=== PATIENT | male | born 1995 | race African-American/Black ===

== ENCOUNTER 2024-01-24 10:56 | Emergency (ER) | payer OTHER ==
[2024-01-24 11:02] VITALS: BP 136/73; PULSE 73; RESP 18; TEMP 97.1; BMI 31.5
[2024-01-24] MEDS ORDERED: ACETAMINOPHEN 500 MG TABLET (FP) ONE (11:39)
[2024-01-24] MEDS ORDERED: ERYTHROMYCIN 0.5% OPHTHALMIC OINTMENT 3.5 GM TUBE ONE (11:39)
[2024-01-24] MEDS: ERYTHROMYCIN 0.5% OPHTHALMIC OINTMENT 3.5 GM TUBE OU STA (11:42)
[2024-01-24] MEDS: ACETAMINOPHEN 500 MG TABLET (FP) PO ONE (11:42)
== END 2024-01-24 12:45 | disposition home or self-care (01) ==
LOC: JERFT 10:56
DX: H57.89 Other specified disorders of eye and adnexa (principal); R09.81 Nasal congestion; H10.33 Unspecified acute conjunctivitis, bilateral; Z20.822 Contact with and (suspected) exposure to COVID-19
CPT/HCPCS: 0241U-QW; 99283-25